=== PATIENT | female | born 1970 | race Caucasian/White ===

== ENCOUNTER → 2016-05-15 | Outpatient (CLI) | payer BC ==
--- NOTE | 2016-05-15 16:44 | MAMMOGRAPHY REPORT ---
BILATERAL DIGITAL SCREENING MAMMOGRAM TOMOSYNTHESIS WITH CAD: 05/15/2016 CLINICAL HISTORY: Routine screening. Patient has no complaints. TECHNIQUE: Breast tomosynthesis in addition to standard 2D mammography was performed. Current study was also evaluated with a Computer Aided Detection (CAD) system. COMPARISON: Comparison is made to exams dated: 05/11/2015 mammogram, 05/06/2013 mammogram, 12/08/2014 ma mmogram, 05/07/2014 mammogram, 10/05/2010 mammogram, and 12/26/2005 mammogram - [facility] enter. BREAST COMPOSITION: The tissue of both breasts is extremely dense, which lowers the sensitivity of mammography. FINDINGS: There are 3 partially circumscribed masses in the superior left breast, 2 of which projec t in the upper outer quadrant, measuring 7, 13 and 19 mm. Although they could represent cysts, they are new/increased compared to prior exams. Additional characterization with ultrasound and possibl e additional mammographic views are recommended. There are diffuse bilateral benign-appearing round, punctate and rim calcifications in the breasts. No other suspicious mass, architectural distortion or cluster of microcalcifications is seen. IMPRESSION: ACR BI-RADS CATEGORY 0: INCOMPLETE EVALUATION: NEED ADDITIONAL IMAGING EVALUATION The 3 partially circumscribed masses in the superior left breast need additional evaluation. The patient will be called to schedule an appointment. Approximately 10% of breast cancers are not detected with mammography. A negative mammographic repor t should not delay biopsy if a clinically suggestive mass is present. Soila Rodriges M.D. ay/:05/15/2016 15:42:01 Human Resource Assistant: Malka STONE(Fatou)(Vignesh), [facility] letter sent: Addl Imaging 0 BI-RADS Code: ACR BI-RADS Category 0: Incomplete Evaluation: Need Additional Imaging Evaluation
== END | disposition home or self-care (01) ==
LOC: C.MAMM 08:23
PROVIDERS: ATTEND Internal Medicine
DX: Z12.31 Encounter for screening mammogram for malignant neoplasm of breast (principal); N63 Unspecified lump in breast

== ENCOUNTER → 2016-05-30 | Outpatient (CLI) | payer BC ==
--- NOTE | 2016-05-30 13:02 | MAMMOGRAPHY REPORT ---
ULTRASOUND OF LEFT BREAST: 05/30/2016 CLINICAL HISTORY: 46-year-old woman with a family history of breast cancer = mother and paternal gra ndmother, called back from screening mammography for circumscribed masses within the left breast. COMPARISON: Comparison is made to exams dated: 05/15/2016 mammogram, 05/11/2015 mammogram, 05/07/2014 ma mmogram, and 11/05/2013 mammogram - [facility]. FINDINGS: Real-time high-resolution ultrasound was performed in the superior left breast to evaluat e for the circumscribed masses seen on screening mammography. Multiple cysts and a benign calcifica tion are identified. In the 1:00 axis, 47 m from the nipple, there is an oval parallel circumscribe d anechoic cyst measuring 5.5 x 3.5 x 6.0 mm. A slightly larger anechoic simple cyst is identified in the 1:00 left breast, 3 cm from the nipple, measuring 11.1 x 7.7 x 11.3 mm. A third oval paralle l circumscribed cyst is identified in the 1:00 left breast, 2 cm from the nipple, measuring 16.9 x 9 .3 x 16.7 mm. Curvilinear echogenic shadowing 2 x 3 mm mass is identified in the 12:00 left breast, 4 cm from the nipple, correlating with the benign rim calcification seen mammographically. No susp icious solid mass is identified. Other scattered subcentimeter benign anechoic cysts are seen in th e 12:00 and 1:00 axes. IMPRESSION: ACR BI-RADS CATEGORY 2: BENIGN 1. At least 3 circumscribed masses in the left breast seen mammographically correlate with multiple anechoic cysts in the superior left breast on ultrasound. These findings are compatible with benig n fibrocystic changes. 2. Would recommend follow-up in 1 year for next annual screening mammogram. Also given the extreme ly dense breasts and family history of breast cancer, consider additional supplemental screening wit h whole breast ultrasound or breast MRI, if the patient's lifetime risk of developing breast cancer is at least 20%. These results and recommendations were discussed with the patient at the time of the exam. Soila Rodriges M.D. ay/:05/30/2016 08:33:39 Seniour Insight Manager: Nguyen STONE(R)(M), [facility] letter sent: Normal 1/2 BI-RADS Code: ACR BI-RADS Category 2: Benign
== END | disposition home or self-care (01) ==
LOC: C.MAMM 08:06
PROVIDERS: ATTEND Internal Medicine
DX: N63 Unspecified lump in breast (principal)

== ENCOUNTER → 2016-07-13 | Outpatient (CLI) | payer BC | END | disposition home or self-care (01) | LOC: C.PAPS 08:34 | PROVIDERS: ATTEND Obstetrics & Gynecology | DX: Z01.419 Encounter for gynecological examination (general) (routine) without abnormal findings (principal) ==

== ENCOUNTER → 2016-08-26 | Outpatient (CLI) | payer BC ==
[2016-08-26 11:24] LABS: ALT/SGPT 20 U/L (12-78); AST/SGOT 13 U/L (15-37); BLOOD UREA NITROGEN 11 mg/dl (7-18); BUN/CREATININE RATIO 15.5 (10-20); CALCIUM 8.2 mg/dl (8.5-10.1); CARBON DIOXIDE 31 mmol/L (21-32); CHLORIDE 109 mmol/L (98-107); CREATININE 0.72 mg/dl (0.60-1.20); GLUCOSE 88 mg/dl (70-99); SODIUM 144 mmol/L (136-145)
[2016-08-26 11:32] LABS: ALB/GLOB RATIO 1.3 (0.9-2); ALKALINE PHOSPHATASE 50 U/L (45-117); CHOLESTEROL 179 mg/dl (0-200); CHOLESTEROL/HDL RATIO 3.4; HDL CHOLESTEROL 52 mg/dl; LDL CHOLESTEROL CALCULATED 108 mg/dl; TRIGLYCERIDES 94 mg/dl (0-150); VERY LOW DENSITY LIPOPROT CALC 19 mg/dl
== END | disposition home or self-care (01) ==
LOC: C.LABBC 08:18
PROVIDERS: ATTEND Internal Medicine
DX: E78.00 Pure hypercholesterolemia, unspecified (principal); F41.8 Other specified anxiety disorders

== ENCOUNTER → 2017-05-17 | Outpatient (CLI) | payer OTHER ==
--- NOTE | 2017-05-17 14:29 | MAMMOGRAPHY REPORT ---
BILATERAL DIGITAL SCREENING MAMMOGRAM TOMOSYNTHESIS WITH CAD: 05/17/2017 CLINICAL HISTORY: Routine screening. Patient has no complaints. TECHNIQUE: Breast tomosynthesis in addition to standard 2D mammography was performed. Current study was also evaluated with a Computer Aided Detection (CAD) system. COMPARISON: Comparison is made to exams dated: 05/30/2016 ultrasound, 05/15/2016 mammogram, 05/11/2015 ma mmogram, 12/08/2014 mammogram, 05/07/2014 mammogram, and 05/06/2013 mammogram - [facility]. BREAST COMPOSITION: The tissue of both breasts is extremely dense, which lowers the sensitivity of m ammography. FINDINGS: No suspicious masses, calcifications, or areas of architectural distortion are noted in ei ther breast. There has been no significant interval change compared to prior exams. Scattered bilater al benign-appearing calcifications are not significantly changed. A few round/oval circumscribed zoe ign-appearing masses are noted bilaterally, most prominent in the left upper outer quadrant, with mul tiple benign cysts seen on prior ultrasound exams. Asymmetries seen within bilateral superior survey methodologist ior breasts overlying the pectoralis muscles are stable compared to prior exams. IMPRESSION: ACR BI-RADS CATEGORY 2: BENIGN There is no mammographic evidence of malignancy. A 1 year screening mammogram is recommended. The pa tient will receive written notification of the results. Approximately 10% of breast cancers are not detected with mammography. A negative mammographic report should not delay biopsy if a clinically suggestive mass is present. Niya Joyce M.D. ah/:05/17/2017 08:27:41 Discharge Rn: Gracy STONE(Fatou)(M), [facility] letter sent: Normal 1/2 BI-RADS Code: ACR BI-RADS Category 2: Benign
== END | disposition home or self-care (01) ==
LOC: C.MAMM 08:07
PROVIDERS: ATTEND Internal Medicine
DX: Z12.31 Encounter for screening mammogram for malignant neoplasm of breast (principal)